=== PATIENT | female | born 1995 | race Caucasian/White ===

== ENCOUNTER 2018-01-15 17:58 | Emergency (ER) | payer BC ==
[2018-01-15] MEDS ORDERED: LET GEL TOPICAL 1 EA SYR TP ONE ×2 (18:54→18:56)
--- NOTE | 2018-01-15 18:57 | EDPHY ---
H & P Time Seen by Provider: 01/15/18 18:49 HPI/ROS: CHIEF COMPLAINT: Right knee pain and left wrist pain. HISTORY OF PRESENT ILLNESS: Patient is a 22-year-old female who was running in our to prior arrival in the ER when she tripped and fell on a rock the right knee. She has been able to ambulate since but this is painful. He denies any numbness but does report slight decreased range of motion the knee secondary to pain. She also reports left hand pain after falling on an outstretched arm. She denies any elbow or shoulder pain. Immunizations are up-to-date and she takes no prescribed medications. She denies . There is no drug or alcohol of all min. REVIEW OF SYSTEMS: Constitutional: No fever, no chills. Eyes: No discharge. ENT: No sore throat. Cardiovascular: No chest pain, no palpitations. Respiratory: No cough, no shortness of breath. Gastrointestinal: No abdominal pain, no vomiting. Genitourinary: No hematuria. Musculoskeletal: No back pain. Skin: No rashes. Neurological: No headache. Smoking Status: Current some day smoker Physical Exam: General Appearance: Alert and no distress. Eyes: Pupils equal and round no injection. Respiratory: Chest is nontender, lungs are clear to auscultation. Cardiac: regular rate and rhythm. Gastrointestinal: Abdomen is soft and nontender, no masses, bowel sounds normal. Musculoskeletal: Neck is supple and nontender. 4 cm anterior right knee laceration right lower and lateral to the patellar tendon. No obvious joint involvement. No foreign body. Examination left hand reveals abrasion to the palm of the left hand with no deformity. Full range of motion of all 5 digits. No tenderness over the anatomical snuffbox. Full flexion of the wrist but limited extension of the wrist. Extremities have full range of motion and are nontender. Skin: No rashes or lesions. Constitutional: Initial Vital Signs Temperature (C) 37.2 C 01/15/18 18:01 Heart Rate 82 01/15/18 18:01 Respiratory Rate 18 01/15/18 18:01 Blood Pressure 139/84 H 01/15/18 18:01 O2 Sat (%) 100 01/15/18 18:01 O2 Delivery Mode Room Air Allergies/Adverse Reactions: No Known Allergies Allergy (Unverified 01/15/18 18:05) Home Medications: Medication Instructions Recorded Cephalexin [Keflex (*)] 500 mg PO QID 7 Days cap 01/15/18 Medical Decision Making - Diagnostics Imaging Results: Imaging Impressions Knee X-Ray 01/15/18 18:57 Impression: Laceration with scattered radiopaque debris measuring up to 2 mm. Wrist X-Ray 01/15/18 18:58 Impression: Lucency in the trapezium, possibly related to nondisplaced fracture or projectional artifact. Extremity CT 01/15/18 20:32 Impression: Acute nondisplaced fracture of the trapezium. Findings discussed with Magdaleno Jimenez 01/15/2018 at 21:53. Procedures: Procedure: Laceration repair. Verbal consent was obtained from the patient. The 4 cm laceration on the right knee was anesthetized in the usual fashion. The wound was irrigated, draped and explored to its base with a gloved finger. There were no deep structures involved and no evidence of open joint. The wound was thoroughly irrigated and explored by myself. I removed multiple small rocks. No debridement was necessary. No tendon injury was identified. The wound was repaired with 4 4.0 Vicryl sutures to approximate the wound. The wound repair was then closed with 4.0 nylon #6 horizontal mattress sutures. The wound is well approximated. She was then placed in knee immobilizer. The procedure was performed by myself. ED Course/Re-evaluation: 22-year-old female here with knee laceration and left hand trapezium fracture. The laceration was repaired without complication. See laceration no. X-ray revealed no bony injury. She had full range of motion of the knee was neurovascular intact distally at time of discharge. She is placed in knee immobilizer to limit range of motion of the knee while the laceration heals. Patient did have a trapezium fracture identified on CT scan of the hand will follow up with Orthopedics. She was placed in a volar splint. - Data Points Medications Given: Discontinued Medications Cephalexin (Keflex 500 Mg Prepack#4) 1 btl TAKEHOME EDNOW ONE PRN Reason: Protocol Stop: 01/15/18 20:56 Last Admin: 01/15/18 20:58 Dose: 1 btl Cephalexin HCl (Keflex) 500 mg PO EDNOW ONE PRN Reason: Protocol Stop: 01/15/18 20:42 Last Admin: 01/15/18 20:57 Dose: 500 mg Tetracaine/Epinephrine/Lidocaine (Let Gel Topical) 2 ea TP EDNOW ONE Stop: 01/15/18 18:57 Last Admin: 01/15/18 18:56 Dose: 2 ea Departure - Departure Disposition: Home, Routine, Self-Care Clinical Impression: Laceration of knee, Trapezium bone fracture, closed Condition: Fair Instructions: Cephalexin (By mouth), Laceration (ED), Puncture Wound (ED), Wound Infection (ED), R.I.C.E. Treatment (ED) Additional Instructions: Wear the knee immobilizer when ambulating for the next 10 days until he have the sutures removed from your right knee. Return to ER if he develops fever or redness or other signs of infection. With regards to your hand fracture please call Orthopedics at the number given to today to schedule appointment for definitive evaluation in the next 3-5 days. Wear the splint until seen by Orthopedics. Referrals: NONE *PRIMARY CARE P,. [Primary Care Provider] - As per Instructions Krystal Levine MD [Medical Doctor] - As per Instructions Prescriptions: Cephalexin [Keflex (*)] 500 mg PO QID 7 Days cap
[2018-01-15] MEDS ORDERED: CEPHALEXIN 500 MG CAP PO ONE (20:41)
[2018-01-15] MEDS ORDERED: CEPHALEXIN 500MG PREPACK#4 BTL TAKEHOME ONE ×2 (20:54→20:55)
[2018-01-15 22:32] VITALS: BP 129/79
== END 2018-01-15 22:30 | disposition home or self-care (01) ==
PROC: 0HQKXZZ Repair Right Lower Leg Skin, External Approach (ICD-10-PCS; principal; 2018-01-15)
PROC: 2W3DX1Z Immobilization of Left Lower Arm using Splint (ICD-10-PCS; principal; 2018-01-15)
DX: S81.021A Laceration with foreign body, right knee, initial encounter (principal); M25.561 Pain in right knee; S62.175A Nondisplaced fracture of trapezium [larger multangular], left wrist, initial encounter for closed fracture; W01.198A Fall on same level from slipping, tripping and stumbling with subsequent striking against other object, initial encounter; Y93.02 Activity, running
CPT/HCPCS: L1832